=== PATIENT | female | born 1950 | race Caucasian/White ===

== ENCOUNTER 2021-12-24 13:46 | Emergency (ER) | payer MEDICARE, OTHER ==
[~2021-12-24] VITALS: Ht 160 cm; Wt 90.9 kg
[2021-12-24 14:12] VITALS: BP 170/59
[2021-12-24] MEDS ORDERED: DIAZEPAM5 MG PO (17:09)
[2021-12-24] MEDS ORDERED: PREDNISONE20 MG PO (17:09)
== END 2021-12-24 17:08 | disposition home or self-care (01) ==
LOC: ED 13:46
DX: S29.012A Strain of muscle and tendon of back wall of thorax, initial encounter (principal); I10 Essential (primary) hypertension; I25.10 Atherosclerotic heart disease of native coronary artery without angina pectoris; E78.5 Hyperlipidemia, unspecified; I48.91 Unspecified atrial fibrillation; W01.0XXA Fall on same level from slipping, tripping and stumbling without subsequent striking against object, initial encounter; Z95.5 Presence of coronary angioplasty implant and graft

== ENCOUNTER 2022-09-02 20:20 | Emergency (ER) | payer MEDICARE, OTHER ==
[2022-09-02] VITALS (9 sets, daily range): BP systolic 110–166; BP diastolic 39–116
[~2022-09-02] VITALS: Ht 160 cm; Wt 90.0 kg
[~2022-09-02 20:20] MED LIST: DIAZEPAM5 MG PO; PREDNISONE20 MG PO
[2022-09-02] MEDS ORDERED: PEPCID20 MG PO (22:19)
[2022-09-02] MEDS ORDERED: MEDDOSEPAK PO (22:19)
[2022-09-02] MEDS ORDERED: KEFLEX500 MG PO (22:19)
[2022-09-02] MEDS ORDERED: DIPHENHYDRAM50 M2 PO (22:19)
== END 2022-09-02 23:18 | disposition home or self-care (01) ==
LOC: ED 20:20
DX: T63.481A Toxic effect of venom of other arthropod, accidental (unintentional), initial encounter (principal); L03.114 Cellulitis of left upper limb; L23.89 Allergic contact dermatitis due to other agents; I10 Essential (primary) hypertension; I48.91 Unspecified atrial fibrillation; Z95.5 Presence of coronary angioplasty implant and graft

== ENCOUNTER 2023-05-05 11:38 | Observation (INO) | payer MEDICARE, OTHER ==
[2023-05-05] VITALS (20 sets, daily range): BP systolic 109–148; BP diastolic 43–94
[~2023-05-05] VITALS: Ht 160 cm; Wt 83.4 kg
[~2023-05-05 11:38] MED LIST changes: +DIPHENHYDRAM50 M2 PO; +KEFLEX500 MG PO; +MEDDOSEPAK PO; +PEPCID20 MG PO
[2023-05-05 13:06] LABS: BASO% 0.5 % (0-3); HEMATOCRIT 47.9 % (37.0-47.0); HEMOGLOBIN 15.7 g/dl (12.0-16.0); IMMATURE GRANULOCYTES 0.1 % (0.0-5.0); LYMPH% 23.2 % (15-41); MEAN CELL VOLUME 90.2 fL CALC (80.0-100.0); MEAN CORPUSCULAR HGB 29.6 pG CALC (26.0-32.0); MEAN CORPUSCULAR HGB CONC 32.8 g/dL CAL (32.0-36.0); MONO% 10.7 % (2-13); NEUT# 5.34 thou/uL (2.00-7.15); NEUT% 64.5 % (42-76); RED BLOOD COUNT 5.31 mill/uL (4.20-5.60); RED CELL DISTRI WIDTH 12.7 % (11.5-15.5)
[2023-05-05 13:18] LABS: ALBUMIN 4.5 g/dL (3.2-5.0); ALKALINE PHOSPHATASE 76 u/l (38-126); ANION GAP 11 (6-22 (CALC)); BILIRUBIN, TOTAL 0.7 mg/dL (0.02-1.3); BUN 14 mg/dL (8-23); BUN/CREATININE RATIO 15 (12-20 (CALC)); CARBON DIOXIDE 26 mmol/l (22-30); CHLORIDE 107 mmol/l (95-108); CREATININE 0.9 mg/dL (0.5-1.0); GFR FOR AFR.AMER. > 60 ML/MIN (>=60 (CALC)); GFR OTHER RACES > 60 ML/MIN (>=60 (CALC)); POTASSIUM 4.7 mmol/l (3.5-5.1); SGOT/AST 34 u/l (9-36); SODIUM 139 mmol/l (137-146)
[2023-05-05 14:18] LABS: TSH, 3RD GENERATION 4.78 uIU/mL (0.47 - 4.68)
[2023-05-05] MEDS ORDERED: LEVOTHYROXIN75 MC1 PO (14:52)
[2023-05-05] MEDS ORDERED: LOPRESSOR25 M1 PO (14:53)
[2023-05-05] MEDS ORDERED: AMLODIPINE BESYL5 MG PO (14:53)
[2023-05-05] MEDS ORDERED: SIMVASTATIN40 MG PO (14:54)
[2023-05-05] MEDS ORDERED: LEXAPRO20 MG PO (14:55)
[2023-05-05] MEDS ORDERED: SB ASA LOW81 MG PO (14:56)
[2023-05-05] MEDS ORDERED: AVAPRO300 MG PO (16:23)
[2023-05-05] MEDS ORDERED: ROSUVASTATIN CA40 MG PO (16:31)
[2023-05-06 01:50] VITALS: BP 139/55
[2023-05-06 06:13] LABS: HEMATOCRIT 44.7 % (37.0-47.0); HEMOGLOBIN 14.5 g/dl (12.0-16.0); MEAN CELL VOLUME 89.9 fL CALC (80.0-100.0); MEAN CORPUSCULAR HGB 29.2 pG CALC (26.0-32.0); MEAN CORPUSCULAR HGB CONC 32.4 g/dL CAL (32.0-36.0); RED BLOOD COUNT 4.97 mill/uL (4.20-5.60); RED CELL DISTRI WIDTH 12.7 % (11.5-15.5)
[2023-05-06 06:35] LABS: ALBUMIN 3.8 g/dL (3.2-5.0); ALKALINE PHOSPHATASE 78 u/l (38-126); ANION GAP 9 (6-22 (CALC)); BILIRUBIN, TOTAL 0.6 mg/dL (0.02-1.3); BUN 12 mg/dL (8-23); BUN/CREATININE RATIO 15 (12-20 (CALC)); CALCULATED LDLCHOLESTEROL 55 mg/dL (62-129 (CALC)); CARBON DIOXIDE 25 mmol/l (22-30); CHLORIDE 108 mmol/l (95-108); CHOLESTEROL HDL RATIO 2.1 (<4.4 (CALC)); CREATININE 0.8 mg/dL (0.5-1.0); GFR FOR AFR.AMER. > 60 ML/MIN (>=60 (CALC)); GFR OTHER RACES > 60 ML/MIN (>=60 (CALC)); HDL CHOLESTEROL 68 mg/dL (39.0-59.0); MAGNESIUM 2.1 mg/dL (1.6-2.3); POTASSIUM 4.1 mmol/l (3.5-5.1); SGOT/AST 24 u/l (9-36); SODIUM 138 mmol/l (137-146); TOTAL CHOLESTEROL 143 mg/dl (0-199); TOTAL PROTEIN 6.6 g/dL (6.3-8.2); TOTAL TRIGLYCERIDES 102 mg/dl (0-149); VLDL CHOLESTROL 20 mg/dl (0-48 (CALC))
[2023-05-06 07:19] VITALS: BP 131/51
[2023-05-06 11:29] VITALS: BP 147/52
[2023-05-06 15:39] VITALS: BP 145/49
[2023-05-06 15:40] VITALS: BP 143/49
[2023-05-06] MEDS ORDERED: ELIQUIS5 MG PO (15:45)
== END 2023-05-06 16:35 | disposition home or self-care (01) ==
LOC: ED 11:38 → ED-I 12:36 → ED 14:28 → MS2 14:29
PROVIDERS: Family Medicine; Nurse Practitioner Family; ADMIT Student in an Organized Health Care Education/Training Program; ATTEND Student in an Organized Health Care Education/Training Program
DX: I48.19 Other persistent atrial fibrillation (principal); R00.1 Bradycardia, unspecified; I10 Essential (primary) hypertension; I20.9 Angina pectoris, unspecified; E03.9 Hypothyroidism, unspecified; E78.00 Pure hypercholesterolemia, unspecified; I67.1 Cerebral aneurysm, nonruptured; I77.9 Disorder of arteries and arterioles, unspecified; Z87.891 Personal history of nicotine dependence; Z79.82 Long term (current) use of aspirin; Z95.820 Peripheral vascular angioplasty status with implants and grafts
CPT/HCPCS: J1650